=== PATIENT | male | born 1990 | race Two or more races ===

== ENCOUNTER 2019-01-19 04:18 | Emergency (ER) | payer OTHER ==
[~2019-01-19] VITALS: Ht 175.3 cm; Wt 68.2 kg
[2019-01-19] MEDS ORDERED: LORazepam 1 MG tablet PO PRN (05:00)
--- NOTE | 2019-01-19 05:15 | NUR ---
[facility] Patient has a 5150 in hand for danger to self. Patient has been in [place] for approximately three days. He has been living on the streets. The patient is well oriented, very angry about life. He exhibits paranoia. The patient tells this staff writer that he wants to kill himself as soon as he gets out of here. "I'm going to set the world on fire. I'm mad at the world. I don't belong in this world anymore. I'm going to take a needle and pump the blood out." Patient states a history of ADHD, Social anxiety disorder, and Depression. Patient states he takes Seroquel 150 mg QHS, and Zyprexa 10 mg BID. Patient states he has not taken those medications in a long time because he has no money and is on the streets. Patient admits to using meth four days ago. The patient was given Ativan 1 mg PO. He was insured by this staff writer that he is in a safe place. His home medications will be restarted today. Patient is in sight from the nursing station. Q15 minute rounding will be done for patient safety.
[2019-01-19 05:23] LABS: CLARITY,URINE CLEAR (Clear); COLOR,URINE YELLOW (Yellow); GLUCOSE, URINE NEGATIVE (Neg); KETONES,URINE NEGATIVE (Neg); LEUKOCYTE ESTERASE ,URINE NEGATIVE (Neg); NITRITES, URINE NEGATIVE (Neg); OCCULT BLOOD,URINE NEGATIVE (Neg); PH,URINE 6.5 (4.8-8.0); PROTEIN,URINE NEGATIVE (Neg); UROBILINOGEN,URINE 0.2 E.U/dL (0.2-1.0)
[2019-01-19 05:25] LABS: UA COLLECTION TYPE CLN CATCH MIDSTREAM
[2019-01-19 05:27] LABS: URINE AMPHETAMINE SCREEN NEGATIVE (Neg); URINE BARBITUATE SCREEN NEGATIVE (Neg); URINE BENZODIAZEPINES SCREEN NEGATIVE (Neg); URINE CANNABINOID SCREEN POSITIVE (Neg); URINE COCAINE SCREEN NEGATIVE (Neg); URINE METHADONE SCREEN NEGATIVE (Neg); URINE OPIATE SCREEN NEGATIVE (Neg); URINE PHENCYCLIDINE SCREEN NEGATIVE (Neg)
[2019-01-19 05:51] LABS: BASOPHILS % (AUTO) 0.5 % (0-1); EOSINOPHILS # (AUTO) 0.2 X10'3 (0-0.9); EOSINOPHILS % (AUTO) 5.2 % (0-6); HEMATOCRIT 42.6 % (42.0-52.0); HEMOGLOBIN 14.4 g/dl (14.0-17.9); LYMPHOCYTES # (AUTO) 1.6 X10'3 (1.1-4.8); LYMPHOCYTES % (AUTO) 49.8 % (21-51); MEAN CORPUSCULAR HEMOGLOBIN 30.1 PG (27.0-31.0); MEAN CORPUSCULAR HGB CONC 33.9 g/dL (33.0-36.5); MEAN CORPUSCULAR VOLUME 88.8 FL (78-98); MEAN PLATELET VOLUME 6.2 FL (7.4-10.4); MONOCYTES # (AUTO) 0.4 X10'3 (0-0.9); NEUTROPHILS % (AUTO) 31.5 % (42-75); PLATELET COUNT 249 X10'3 (140-440); RED CELL DISTRIBUTION WIDTH 13.4 % (11.5-14.5); WHITE BLOOD COUNT 3.2 X10'3 (4.5-11.0)
[2019-01-19 06:07] LABS: ALANINE AMINOTRANSFERASE 29 U/L (12-78); ALBUMIN 3.6 G/DL (3.4-5.0); ALBUMIN/GLOBULIN RATIO 1.1 (1.1-1.5); ALKALINE PHOSPHATASE 49 IU/L (46-116); ANION GAP 8 (8-16); ASPARTATE AMINO TRANSFERASE 27 U/L (10-37); BILIRUBIN,TOTAL 0.7 MG/DL (0.1-1.0); BLOOD UREA NITROGEN 15 MG/DL (7-18); BUN/CREATININE RATIO 16.5 (5.4-32.0); CALCIUM 8.3 MG/DL (8.5-10.1); CHLORIDE 102 MMOL/L (99-107); CREATININE 0.91 MG/DL (0.60-1.10); GLUCOSE 94 MG/DL (70-104); POTASSIUM 3.6 MMOL/L (3.5-5.1); SODIUM 137 MMOL/L (135-145); TOTAL CARBON DIOXIDE 27.5 MMOL/L (24-32); TOTAL PROTEIN 6.9 G/DL (6.4-8.2); eGFR > 90 ML/MIN
[2019-01-19 06:23] LABS: ETHANOL < 0.010 GM/DL (0.0-0.010)
[2019-01-19] MEDS: olanzapine 10mg tablet PO SCH ×2 (10:45→20:27)
--- NOTE | 2019-01-19 18:48 | NUR ---
pt ate all food from food tray. now laying quietly in bed.
--- NOTE | 2019-01-19 19:04 | NUR ---
Patient is laying on hospital bed with eyes closed, just finished dinner w/o problem. He was easy to wake and answered all my questing, but seemed hesitant. He tells me he is here because she need help for SI and depression. Just recently arrived in [place] from [facility] and is homeless. I will continue to monitor.
[2019-01-19] MEDS ORDERED: quetiapine 100mg tablet PO SCH (21:00)
[2019-01-19] MEDS ORDERED: QUEtiapine 25mg tablet PO SCH (21:00)
--- NOTE | 2019-01-19 21:18 | NUR ---
[facility]pad Hero Rodriges RN called for a nurse to nurse and will present to attending for possible placement.
[2019-01-20 06:04] VITALS: BP 106/64
[2019-01-20] MEDS: olanzapine 10mg tablet PO SCH (08:06)
== END 2019-01-20 18:18 ==
LOC: ER 04:19
DX: R45.851 Suicidal ideations (principal); R45.850 Homicidal ideations; F32.9 Major depressive disorder, single episode, unspecified; R44.1 Visual hallucinations; F12.90 Cannabis use, unspecified, uncomplicated; R44.0 Auditory hallucinations; Z88.8 Allergy status to other drugs, medicaments and biological substances
CPT/HCPCS: 36415; 80053; 80305; 80320; 81003; 84443; 85025; 99285

== ENCOUNTER 2019-01-24 17:23 | Emergency (ER) | payer OTHER ==
[~2019-01-24] VITALS: Ht 175.3 cm; Wt 71.5 kg
[2019-01-24] MEDS ORDERED: LORazepam 1 MG tablet PO ONE (17:40)
[2019-01-24 18:16] LABS: BASOPHILS % (AUTO) 0.4 % (0-1); EOSINOPHILS % (AUTO) 0.1 % (0-6); HEMOGLOBIN 13.8 g/dl (14.0-17.9); LYMPHOCYTES # (AUTO) 2.3 X10'3 (1.1-4.8); LYMPHOCYTES % (AUTO) 31.8 % (21-51); MEAN CORPUSCULAR HEMOGLOBIN 30.2 PG (27.0-31.0); MEAN CORPUSCULAR HGB CONC 33.6 g/dL (33.0-36.5); MEAN CORPUSCULAR VOLUME 90.1 FL (78-98); MEAN PLATELET VOLUME 6.1 FL (7.4-10.4); MONOCYTES # (AUTO) 0.8 X10'3 (0-0.9); MONOCYTES % (AUTO) 10.9 % (2-12); NEUTROPHILS # (AUTO) 4.2 X10'3 (1.8-7.7); NEUTROPHILS % (AUTO) 56.8 % (42-75); PLATELET COUNT 290 X10'3 (140-440); RED BLOOD COUNT 4.55 X10'6 (4.70-6.10); RED CELL DISTRIBUTION WIDTH 13.8 % (11.5-14.5); WHITE BLOOD COUNT 7.3 X10'3 (4.5-11.0)
[2019-01-24 18:36] LABS: ALANINE AMINOTRANSFERASE 28 U/L (12-78); ALBUMIN 4.2 G/DL (3.4-5.0); ALBUMIN/GLOBULIN RATIO 1.2 (1.1-1.5); ALKALINE PHOSPHATASE 48 IU/L (46-116); ANION GAP 7 (8-16); ASPARTATE AMINO TRANSFERASE 25 U/L (10-37); BILIRUBIN,TOTAL 0.3 MG/DL (0.1-1.0); BLOOD UREA NITROGEN 9 MG/DL (7-18); BUN/CREATININE RATIO 8.7 (5.4-32.0); CALCIUM 9.4 MG/DL (8.5-10.1); CHLORIDE 104 MMOL/L (99-107); CREATININE 1.03 MG/DL (0.60-1.10); GLUCOSE 100 MG/DL (70-104); POTASSIUM 3.6 MMOL/L (3.5-5.1); SODIUM 140 MMOL/L (135-145); TOTAL CARBON DIOXIDE 29.4 MMOL/L (24-32); TOTAL PROTEIN 7.6 G/DL (6.4-8.2); eGFR 87 ML/MIN
[2019-01-24 18:45] LABS: ETHANOL < 0.010 GM/DL (0.0-0.010)
[2019-01-24 19:28] LABS: URINE AMPHETAMINE SCREEN POSITIVE (Neg); URINE BARBITUATE SCREEN NEGATIVE (Neg); URINE BENZODIAZEPINES SCREEN NEGATIVE (Neg); URINE CANNABINOID SCREEN POSITIVE (Neg); URINE COCAINE SCREEN NEGATIVE (Neg); URINE METHADONE SCREEN NEGATIVE (Neg); URINE OPIATE SCREEN NEGATIVE (Neg); URINE PHENCYCLIDINE SCREEN NEGATIVE (Neg)
[2019-01-24 19:34] LABS: CLARITY,URINE CLEAR (Clear); COLOR,URINE YELLOW (Yellow); GLUCOSE, URINE NEGATIVE (Neg); KETONES,URINE NEGATIVE (Neg); LEUKOCYTE ESTERASE ,URINE NEGATIVE (Neg); NITRITES, URINE NEGATIVE (Neg); OCCULT BLOOD,URINE NEGATIVE (Neg); PROTEIN,URINE NEGATIVE (Neg); UROBILINOGEN,URINE 0.2 E.U/dL (0.2-1.0)
[2019-01-24] MEDS ORDERED: OLAN20TA34 PO (19:38)
[2019-01-24 19:39] LABS: UA COLLECTION TYPE CLN CATCH MIDSTREAM
[2019-01-24] MEDS ORDERED: NALT50TA PO (19:39)
[2019-01-24] MEDS ORDERED: FLUO40CA PO (19:41)
--- NOTE | 2019-01-24 19:56 | NUR ---
Patient file faxed to [facility]. Received during work hours.
--- NOTE | 2019-01-24 21:00 | NUR ---
pt is paranoid and perservorating about "gang members" following him because there's "a hit out on him." pt reports that he is being forced to either kill himself or kill somebody else by the devil.
[2019-01-24] MEDS: olanzapine 10mg tablet PO SCH (21:16)
--- NOTE | 2019-01-24 21:33 | NUR ---
pt is becoming agitated by another pt's behavior. pt believes he knows that other patient and that he is a gang member.
--- NOTE | 2019-01-24 22:23 | NUR ---
pt is lying awake in bed.
--- NOTE | 2019-01-24 22:37 | NUR ---
pt reported having a nightmare. pt asked for a snack, given maria esther crackers and juice.
--- NOTE | 2019-01-24 23:04 | NUR ---
pt appears to be sleeping, no s/s of distress noted. will continue to monitor
--- NOTE | 2019-01-25 01:33 | NUR ---
pt continues to sleep, unlabored rr.
--- NOTE | 2019-01-25 03:44 | NUR ---
pt is sleeping on right side, no s/s distress noted. will continue to monitor.
[2019-01-25] MEDS ORDERED: naltrexone 50mg tablet PO SCH (08:00)
[2019-01-25] MEDS: FLUoxetine 20mg capsule PO SCH (08:06)
--- NOTE | 2019-01-25 09:08 | NUR ---
Pt lying in bed with eyes closed. Pt in no distress. When questioned, pt stated he continues to have S.I. and H.I. and is experiencing aud. michlele telling him so. Pt says he feels safe at the moment.
--- NOTE | 2019-01-25 11:00 | NUR ---
Pt continues to rest quietly in bed without complaints.
--- NOTE | 2019-01-25 13:00 | NUR ---
Pt lying in bed without complaints, sleeping on and off.
--- NOTE | 2019-01-25 15:00 | NUR ---
Pt awoke for lunch and then returned to resting with eyes closed without complaints.
--- NOTE | 2019-01-25 16:58 | NUR ---
Pt remains sleeping in bed without complaints. Pt seen by [facility] and placed on 5150 for DTS/DTO.
--- NOTE | 2019-01-25 19:00 | NUR ---
This patient is awake, he complains of not wanting to live. "I won't eat, I'm stressed out. I'm going to starve myself to ." The patient exhibits paranois, people are going to kill me. "I'm stressing the fuck out." Calming measures are used. The patient has not eaten his dinner. A few grahm crackers were eaten.
[2019-01-25] MEDS: olanzapine 10mg tablet PO SCH (21:00)
--- NOTE | 2019-01-25 21:00 | NUR ---
This patient is sleeping quietly.
--- NOTE | 2019-01-25 23:00 | NUR ---
This patient has continued to sleep. Patients bed in view from nursing station. Q15 minute rounding being done for patient safety.
--- NOTE | 2019-01-26 04:59 | NUR ---
Patient sleeping on his right side, bed is in mid fowlers position. Patient has been sleeping quietly.
--- NOTE | 2019-01-26 06:30 | NUR ---
Assumed care of patient. Asleep upon change of shift observation. Color and breathing WNL.
--- NOTE | 2019-01-26 08:10 | NUR ---
Awakened for breakfast. Picked at his food. Medication admisitered without event. Spoke with patient in a 1:1. Patient stated he believed "they're after me. I need to protect myself." Speaking off and on in a whisper. Difficult to determine what patient is saying. The expression on his face reveals alarm or concern.
[2019-01-26] MEDS: FLUoxetine 20mg capsule PO SCH (08:27)
--- NOTE | 2019-01-26 09:05 | NUR ---
Called received from [facility] for a nurse to nurse report.
[2019-01-26] MEDS ORDERED: LORazepam 1 MG tablet PO ONE (10:20)
--- NOTE | 2019-01-26 10:32 | NUR ---
Patient presents as anxious and restless. Paranoid ideation in place. Whispering to staff "Monkey see monkey see. Monkey do saturday do. You know those guys are out to get me. If I wanted to be in a gang I would move back to [place] where I my people live."
--- NOTE | 2019-01-26 12:16 | NUR ---
Animated at this time. Talking about listening to rap music and how it changed his life "for all the better. When I listen to music I know what I'm supposed to do."
--- NOTE | 2019-01-26 14:18 | NUR ---
Call received from [facility] office. Patient lori be picked up in an hour to go to [facility]. Patient informed. Stated "Oh no, not that place. Three days in and you're out. No questions asked."
--- NOTE | 2019-01-26 14:41 | NUR ---
Discharge Note Naldo sales route driver helper from [facility] here to transport patient to [facility]. Patient given all his personal belongings as per inventory sheet. Ambulated out of clinic accompanied by security.
[2019-01-26 14:44] VITALS: BP 99/45
== END 2019-01-26 14:46 ==
LOC: ER 17:25
DX: F23 Brief psychotic disorder (principal); F32.2 Major depressive disorder, single episode, severe without psychotic features; F41.9 Anxiety disorder, unspecified; R00.0 Tachycardia, unspecified; F22 Delusional disorders; Z59.0 Homelessness; Z88.8 Allergy status to other drugs, medicaments and biological substances; Z79.899 Other long term (current) drug therapy
CPT/HCPCS: 36415; 80053; 80305; 80320; 81003; 84443; 85025; 99285

== ENCOUNTER 2019-02-05 14:46 | Emergency (ER) | payer MEDICAID ==
[~2019-02-05] VITALS: Ht 165.1 cm; Wt 68.2 kg
[~2019-02-05 14:46] MED LIST: FLUO40CA PO; NALT50TA PO; OLAN20TA34 PO
[2019-02-05 15:15] VITALS: BP 134/96
[2019-02-05] MEDS ORDERED: HYDR-3686 PO (16:25)
== END 2019-02-05 16:27 | disposition home or self-care (01) ==
LOC: ER 14:47
DX: F41.9 Anxiety disorder, unspecified (principal); F22 Delusional disorders; F32.9 Major depressive disorder, single episode, unspecified; Z88.8 Allergy status to other drugs, medicaments and biological substances; Z79.899 Other long term (current) drug therapy
CPT/HCPCS: 99284